=== PATIENT | female | born 1940 | race Caucasian/White ===

== ENCOUNTER 2020-11-25 08:56 | Emergency (ER) | payer MEDICARE, OTHER, SELFPAY ==
[2020-11-25 09:00] VITALS: BP 116/77; PULSE 63; RESP 19; TEMP 37; O2SAT 97; BMI 24.6
--- NOTE | 2020-11-25 09:27 | HMH.EDUTC ---
[facility] Disposition Clinical Impression: Puncture wound of lower leg Qualifiers: Encounter type: initial encounter Laterality: right Qualified Code(s): S81.831A - Puncture wound without foreign body, right lower leg, initial encounter Disposition: Home, Self-Care Condition on Discharge: Good Instructions: DI for Cellulitis -- Adult, DI for Puncture Wound, Cephalexin, Mupirocin Additional Instructions: Clean area multiple times daily with antibacterial soap and water Take medication as prescribed Follow up with Family Doctor if no improvement or any worsening of symptoms Return if needed Prescriptions: Mupirocin [Bactroban 2% Ointment 22gm tube] 1 applicatio TP TID 10 Days #1 tube Transmission Status: Received by [facility] #[id number] cephALEXin [cephALEXin 500mg capsule*] 500 mg PO BID 5 Days #10 cap Transmission Status: Received by [facility] #[id number] Referrals: Shakir Green [Primary Care Provider] - As needed Time of Disposition: 09:40 Medical Decision Making - Harish Inquiry Pt receiving controlled substance: No Harish was queried for this patient: No Vital Signs: 11/25/20 09:00 11/25/20 09:42 Temperature 98.6 F 98.6 F Temperature Source Oral Pulse Rate 63 Pulse Rate [Right Brachial] 63 Respiratory Rate 19 19 Blood Pressure 116/77 Blood Pressure [Right Arm] 116/77 Blood Pressure Mean [Right Arm] 90 Blood Pressure Source [Right Arm] Automatic Cuff Blood Pressure Position [Right Arm] Sitting 02 Sat by Pulse Oximetry 97 Oxygen Delivery Method Room Air Orders (Tests/Meds): ED MEDICATIONS Discontinued Medications Generic Name Dose Route Start Last Admin Trade Name Freq PRN Reason Stop Dose Admin Tetanus/Reduced Diphtheria/Acell Pertussis 0.5 ml 11/25/20 09:26 11/25/20 09:30 Tet/Diphth/Pert-Adult 0.5ml Syringe IM 11/25/20 09:27 0.5 ml .ONCE ONE Administration Medical Decision Narrative: Medication discussed with pharmacy [facility] HPI - General Stated complaint: ao 11/20/20 injury Rt leg Time Seen by Provider: 11/25/20 09:27 Mode of Arrival: Ambulatory Source of Information: Patient Limitations: No Limitations Description of Symptoms (Recalled from Triage Doc. by RN): PATIENT C/O INJURY TO RIGHT LEG AFTER BEING ATTACKED BY A ROOSTER ON 11/20 HEENT Symptoms (Recalled from RN notes): No Resp Symptoms (Recalled from RN notes): No Skin Symptoms (Recalled from RN notes): Yes MS Symptoms (Recalled from RN notes): No Functional Status (Recalled from RN notes): WNL - History of Present Illness Provider Complaint: Patient state that she was attacked by a rooster on 11/20 State that she has several contusions and puncture wounds on her right lower leg States that She has been taking care of it and keeping it clean and using peroxide on it but noticed the one on her lower leg was looking red and infected States that there has not been any drainage from it but she was concerned and thought she may need some antibiotics - Related Data Previous Rx's Medication Instructions Recorded Mupirocin [Bactroban 2% Ointment 1 applicatio TP TID 10 Days #1 tube 11/25/20 22gm tube] cephALEXin [cephALEXin 500mg 500 mg PO BID 5 Days #10 cap 11/25/20 capsule*] Allergies Allergy/AdvReac Type Severity Reaction Status Date / Time No Known Allergies Allergy Verified 11/25/20 09:25 - Worker's Comp Is this a Worker's Comp case?: No [facility] History - Hepatitis A Screen Drug use history?: No High risk sexual behaviors?: No History of sexually transmitted infection?: No Currently employed?: No Childcare worker?: No Do you have indoor plumbing?: Yes Do you have electricity?: Yes Attestation statement:: This patient has been screened for Hepatitis A risk factors. I have reviewed the patient's past medical history: Yes - Social History Alcohol Intake: never Occupational Status: other ROS Obtained: Yes All systems reviewed & no additional complaints,
[2020-11-25 09:42] VITALS: BP 116/77; PULSE 63; RESP 19; TEMP 37; O2SAT 97
== END 2020-11-25 09:44 | disposition home or self-care (01) ==
PROVIDERS: Emergency Provider Nurse Practitioner; PCP Family Medicine
DX: S81.831A Puncture wound without foreign body, right lower leg, initial encounter (principal); W61.32XA Struck by chicken, initial encounter; Y92.72 Chicken coop as the place of occurrence of the external cause; Z88.7 Allergy status to serum and vaccine; Z23 Encounter for immunization
CPT/HCPCS: 90471; 90715; 99202; G0463